=== PATIENT | female | born 1950 | race Caucasian/White ===

== ENCOUNTER 2023-05-04 13:35 | Emergency (ER) | payer MEDICARE | END 2023-05-04 15:12 | disposition home or self-care (01) | LOC: LL.ED 13:35 | DX: K59.00 Constipation, unspecified (principal); E78.00 Pure hypercholesterolemia, unspecified; K21.9 Gastro-esophageal reflux disease without esophagitis; Z79.899 Other long term (current) drug therapy | CPT/HCPCS: 74018; 99283; 99284 ==